=== PATIENT | female | born 1945 | race Two or more races ===

== ENCOUNTER 2024-06-03 20:56 | Inpatient (IN) | payer OTHER, MEDICAID ==
[~2024-06-03] VITALS: Ht 152.4 cm; Wt 43.1 kg
[2024-06-03] MEDS: LORazepam 2 MG/ML VIAL IM ONE (21:26)
[2024-06-03] MEDS: DiphenhydrAMINE HCL 50 MG/ML VIAL IM ONE (21:26)
[2024-06-03] MEDS: HALOPERIDOL LACTATE 5 MG/ML VIAL IM ONE (21:27)
[2024-06-03 21:41] LABS: COVID AG,FIA SOURCE NASAL SWAB
[2024-06-03 21:54] LABS: BASOPHILS % (AUTO) 0.6 % (0.0-2.0); EOSINOPHILS % (AUTO) 0.8 % (1.0-6.0); HEMATOCRIT 38.8 % (36-46); HEMOGLOBIN 12.7 g/dL (12.0-16.0); LYMPHOCYTES # (AUTO) 0.9 K/uL (1.0-4.8); LYMPHOCYTES % (AUTO) 11.1 % (22.0-44.0); MEAN CORPUSCULAR HEMOGLOBIN 30.8 pg (26.0-34.0); MEAN CORPUSCULAR HGB CONC 32.8 G/dL (31.0-37.0); MEAN CORPUSCULAR VOLUME 94 fL (80-100); MONOCYTES # (AUTO) 0.6 K/uL (0.1-1.0); MONOCYTES % (AUTO) 7.4 % (2.0-9.0); NEUTROPHILS # (AUTO) 6.8 K/uL (1.8-7.7); NEUTROPHILS % (AUTO) 80.1 % (40.0-70.0); PLATELET COUNT (AUTO) 207 K/uL (150-450); RED BLOOD CELL COUNT(AUTO) 4.13 MIL/uL (4.00-5.20); RED CELL DISTRIBUTION WIDTH 14.4 % (11.5-14.5); WHITE BLOOD COUNT (AUTO) 8.5 K/uL (4.5-11.0)
[2024-06-03 21:56] LABS: ALCOHOL, BLOOD (SERUM) < 3 mg/dL (0-10)
[2024-06-03 21:57] LABS: CALCIUM, TOTAL 8.9 mg/dL (8.8-10.5); CARBON DIOXIDE 26 mmol/L (22-29); GLOMERULAR FILTR. RATE CALC 40 mL/min (>60); GLUCOSE,RANDOM 208 mg/dL (70-110); UREA NITROGEN, BLOOD 21 mg/dL (7-18)
[2024-06-03 22:01] LABS: ANION GAP 12 mmol/L (8-16); CHLORIDE 105 mmol/L (98-107); POTASSIUM 3.4 mmol/L (3.5-5.1); SODIUM SERUM 143 mmol/L (136-145)
[2024-06-03 22:02] LABS: SARS-COV2 (COVID) ANTIGEN,FIA Negative (Negative)
[2024-06-04] MEDS ORDERED: LORazepam 1 MG TABLET PO PRN (04:45)
[2024-06-04] MEDS ORDERED: ZOLPIDEM TARTRATE 10 MG TABLET PO PRN (04:45)
[2024-06-04] MEDS ORDERED: HALOPERIDOL 5 MG TABLET PO PRN (04:45)
[2024-06-04 05:24] LABS: APPEARANCE,URINE CLEAR (CLEAR); BILIRUBIN,URINE NEGATIVE (NEGATIVE); COLOR,URINE LIGHT YELLOW (YELLOW); GLUCOSE, URINE (UA) NEGATIVE (NEGATIVE); KETONES,URINE NEGATIVE (NEGATIVE); LEUKOCYTE ESTERASE ,URINE NEGATIVE (NEGATIVE); NITRATE,URINE NEGATIVE (NEGATIVE); OCCULT BLOOD,URINE NEGATIVE (NEGATIVE); PROTEIN,URINE NEGATIVE (NEGATIVE); SPECIFIC GRAVITIY, URINE 1.013 (1.003-1.030); UROBILINOGEN,URINE <=1.0 mg/dL (<=1.0)
[2024-06-04 05:32] LABS: AMPHET/METH SCREEN,URINE NEGATIVE (NEGATIVE); BARBITURATE SCREEN, URINE NEGATIVE (NEGATIVE); BENZODIAZEPINES SCREEN,URINE NEGATIVE (NEGATIVE); CANNABINOID SCREEN,URINE NEGATIVE (NEGATIVE); COCAINE SCREEN,URINE NEGATIVE (NEGATIVE); METHADONE SCREEN, URINE NEGATIVE (NEGATIVE); OPIATE SCREEN,URINE POSITIVE (NEGATIVE); PHENCYCLIDINE SCREEN,URINE NEGATIVE (NEGATIVE)
[2024-06-04 05:37] LABS: ALCOHOL, URINE DRUG SCREEN NEGATIVE (NEGATIVE)
[2024-06-04 17:57] VITALS: O2SAT 95
[2024-06-04 21:25] VITALS: BP 133/78; PULSE 99; RESP 18; TEMP 98; O2SAT 96
[2024-06-05] MEDS ORDERED: PETROLATUM,WHITE 28 GM JELLY TP PRN (06:30)
[2024-06-05] MEDS ORDERED: CloNIDine HCL 0.1 MG TABLET PO PRN (06:30)
[2024-06-05] MEDS ORDERED: MAGNESIUM HYDROXIDE SUSPENSION 30 ML UDCUP PO PRN (06:30)
[2024-06-05] MEDS ORDERED: LOPERAMIDE HCL 2 MG CAPSULE PO PRN (06:30)
[2024-06-05] MEDS ORDERED: GuaiFENesin/D-METHORPHAN [SUGAR-FREE] 200-20MG/10 ML SYRUP UDCUP PO PRN (06:30)
[2024-06-05] MEDS ORDERED: MAG HYDROX/ALUMINUM HYD/SIMETH ES 30 ML SUSPENSION UDCUP PO PRN (06:30)
[2024-06-05] MEDS ORDERED: ALBUTEROL SULFATE HFA 90 MCG/PUFF 8 GM INHALER IH PRN (06:30)
[2024-06-05] MEDS ORDERED: ONDANSETRON 4 MG TABLET PO PRN (06:30)
[2024-06-05] MEDS ORDERED: DOCUSATE SODIUM 100 MG CAPSULE PO PRN (06:30)
[2024-06-05] MEDS ORDERED: NICOTINE 14 MG/24 HOUR PATCH TD PRN (06:30)
[2024-06-05 08:16] VITALS: BP 108/74; PULSE 122; RESP 18; TEMP 96.9; O2SAT 95
[2024-06-05 08:45] VITALS: RESP 17
[2024-06-05] MEDS: ACETAMINOPHEN 325 MG TABLET PO PRN (08:45)
[2024-06-05] MEDS: LISINOPRIL 10 MG TABLET PO SCH (09:00)
[2024-06-05 09:45] VITALS: RESP 16
[2024-06-05] MEDS ORDERED: LISI-893 PO (16:09)
[2024-06-05] MEDS ORDERED: SIMV-261 PO (16:10)
[2024-06-05 16:35] VITALS: RESP 18
[2024-06-05 17:45] VITALS: RESP 16
[2024-06-05] MEDS ORDERED: SIMVASTATIN 40 MG TABLET PO SCH (21:00)
== END 2024-06-05 18:20 | disposition home or self-care (01) | DRG 885 ==
LOC: EMS 20:56 → EDH 06-04 05:10 → UNDOADMIN 06-04 05:10 → EMS 06-04 19:10 → B3A 06-04 19:48
PROVIDERS: ADMIT Psychiatry & Neurology Psychiatry; ATTEND Psychiatry & Neurology Psychiatry
DX: F20.9 Schizophrenia, unspecified (principal); Z20.822 Contact with and (suspected) exposure to COVID-19
CPT/HCPCS: 80048; 80307; 81003; 84132; 85025; 99285; G0480; J1200; J1630; J2060